=== PATIENT | male | born 2000 | race Caucasian/White ===

== ENCOUNTER 2022-12-22 20:52 | Emergency (ER) | payer BC, OTHER ==
[2022-12-22 21:00] VITALS: BP 123/77; PULSE 63; RESP 18; TEMP 98.7; BMI 24.4
[2022-12-22] MEDS ORDERED: ACETAMINOPHEN 500 MG TABLET (FP) PO ONE (21:20)
== END 2022-12-22 22:47 | disposition home or self-care (01) ==
LOC: FER 20:52
DX: M25.512 Pain in left shoulder (principal)
CPT/HCPCS: 73000-TC-LT-FY; 73030-TC-LT-FY; 99284-25